=== PATIENT | male | born 1985 | race American Indian/Alaskan Native ===

== ENCOUNTER 2021-01-24 10:49 | Emergency (ER) | payer SELFPAY ==
[2021-01-24 11:25] VITALS: BP 166/96
--- NOTE | 2021-01-24 13:09 | Emergency Department Report ---
ED Headache HPI - General Chief Complaint: Head Injury Stated Complaint: HEADACHE/PAIN(R)SIDE JAW PAIN Time Seen by Provider: 01/24/21 12:57 - History of Present Illness Initial Comments: 35-year-old -Welsh male with a past medical history of bipolar presents to the emergency room for headache to the right side of his head and right side upper jaw pain for 2 weeks. For the same amount of time patient has been having a crooked smile and eyebrow on the right side is not lifting. Patient reports that he is in need experimental drug trial for bipolar medication but cannot remember the name of the medicine. Quality: mild Head Injury Location: parietal (rt side with jaw pain) Recent Head Trauma: no recent headache/trauma Associated Symptoms: facial pain (right upper jaw pain.). denies: fever/chills, flushing, loss of consciousness, nausea/vomiting, nasal congestion, nasal drainage, numbness in legs/feet Allergies/Adverse Reactions: Allergies acetaminophen Adverse Reaction (Verified 01/24/21 11:23) Shortness of Breath Home Medications: Ambulatory Orders Ibuprofen [Motrin 800 MG tab] 800 mg PO Q8HR PRN #30 tablet 01/24/21 ED Review of Systems ROS: Stated complaint: HEADACHE/PAIN(R)SIDE JAW PAIN Other details as noted in HPI Comment: All other systems reviewed and negative ED Past Medical Hx - Medications Home Medications: Home Medications Medication Instructions Recorded Confirmed Last Taken Type Ibuprofen [Motrin 800 MG tab] 800 mg PO Q8HR PRN #30 tablet 01/24/21 Unknown Rx ED Physical Exam - General Limitations: No Limitations General appearance: alert, in no apparent distress - Head Head exam: Present: atraumatic, normocephalic - Eye Eye exam: Present: normal appearance - ENT ENT exam: Present: mucous membranes moist - Neck Neck exam: Present: normal inspection - Respiratory Respiratory exam: Present: normal lung sounds bilaterally. Absent: respiratory distress - Cardiovascular Cardiovascular Exam: Present: regular rate, normal rhythm. Absent: systolic murmur, diastolic murmur, rubs, gallop - GI/Abdominal GI/Abdominal exam: Present: soft, normal bowel sounds - Rectal Rectal exam: Present: deferred - Extremities Exam Extremities exam: Present: normal inspection - Back Exam Back exam: Present: normal inspection - Neurological Exam Neurological exam: Present: alert, oriented X3 - Expanded Neurological Exam Expanded Cranial nerves: EOM's Intact: Normal, Gag Reflex: Normal, Tongue Deviation: Normal, Nystagmus: Normal, Facial Sensation: Normal, Facial Palsy with Forehead Movement: Normal, Facial Palsy without Forehead Movement: Abnormal Right Cerebellar function: Finger to Nose: Normal, Heel to Gonzalez: Normal, Romberg: Normal Upper motor neuron: Vincent Neglect: Normal, Pronator Drift: Normal, Babinski Sign: Normal, Sensory Extinction: Normal Sensory exam: Upper Extremity Light Touch: Normal, Upper Extremity Pin Prick: N ormal, Upper Extremity Temperature: Normal, UE 2 Point Discrimination: Normal, Lower Extremity Light Touch: Normal, Lower Extremity Pin Prick: Normal, Lower Extremity Temperature: Normal, LE 2 Point Discrimination: Normal Motor strength exam: RUE: 4, LUE: 4, RLE: 4, LLE: 4 Best Eye Response ([place]): (4) open spontaneously Best Motor Response (Chaitanya): (6) obeys commands Best Verbal Response ([place]): (5) oriented [place] Total: 15 - Psychiatric Psychiatric exam: Present: normal affect, normal mood - Skin Skin exam: Present: warm, dry, intact, normal color. Absent: rash ED Course Vital Signs 01/24/21 11:24 Temperature 98.2 F Pulse Rate 83 Respiratory 18 Rate Blood Pressure 166/96 O2 Sat by Pulse 97 Oximetry ED Medical Decision Making - Radiology Data Radiology results: report reviewed [address] [address] Cat Scan Report Signed Patient: MARIA INES ROWAN MR #: [id number] : 1985 Acct:[id number] Age/Sex: 35 / M ADM Date: 01/24/21 Loc: ED Attending Dr: Ordering Physician: DAGMAR COULTER Date of Service: 01/24/21 Procedure(s): CT head/brain wo con Accession Number(s): [id number] cc: DAGMAR COULTER CT HEAD WITHOUT CONTRAST INDICATION / CLINICAL INFORMATION: Headache of unknown origin. TECHNIQUE: All CT scans at this location are performed using CT dose reduction for ALARA by means of automated exposure control. COMPARISON: None available. FINDINGS: HEMORRHAGE: None. EXTRA-AXIAL SPACES: Normal in size and morphology for the patient's age. VENTRICULAR SYSTEM: Normal in size and morphology for the patient's age. CEREBRAL PARENCHYMA: No significant abnormality. No acute territorial infarct. MIDLINE SHIFT / HERNIATION: None. CEREBELLUM / BRAINSTEM: No significant abnormality. ORBITS: Normal as visualized. SOFT TISSUES: No significant abnormality. SKULL: No significant abnormality. PARANASAL SINUSES / MASTOID AIR CELLS: Normal as visualized. ADDITIONAL FINDINGS: None. IMPRESSION: 1. No acute intracranial abnormality. Signer Name: Patrick Hoyt MD Signed: 01/24/2021 5:36 PM Workstation Name: [id number] Transcribed By: SB Dictated By: PATRICK HOYT MD Electronically Authenticated By: PATRICK HOYT MD Signed Date/Time: 01/24/211735 DD/ 34 TD/TT: - Medical Decision Making 35-year-old -Welsh male with a past medical history of bipolar presents to the emergency room for headache to the right side of his head and right side upper jaw pain for 2 weeks. For the same amount of time patient has been having a crooked smile and eyebrow on the right side is not lifting. Patient reports that he is in need experimental drug trial for bipolar medication but cannot remember the name of the medicine. Discussed case with Dr. Alex she is okay with a CT head. Critical care attestation.: If time is entered above; I have spent that time in minutes in the direct care of this critically ill patient, excluding procedure time. ED Disposition Clinical Impression: Jaw pain Headache Qualifiers: Headache type: unspecified Headache chronicity pattern: acute headache Intractability: intractable Qualified Code(s): R51.9 - Headache, unspecified Disposition: 01 HOME / SELF CARE / HOMELESS Is pt being admited?: No Does the pt Need Aspirin: No Condition: Stable Additional Instructions: CT scan is negative for any acute abnormalities of your brain. I recommend ibuprofen as I prescribed. Inform your doctor that she been having these headaches from the medication. Increase your fluids advance your diet as tolerated. Prescriptions: Ibuprofen [Motrin 800 MG tab] 800 mg PO Q8HR PRN #30 tablet PRN Reason: Pain , Severe (7-10) Referrals: PRIMARY CAREMD [Primary Care Provider] - 3-5 Days [facility] [Provider Group] - 3-5 Days Forms: Work/School Release Form(ED) Time of Disposition: 17:56
--- NOTE | 2021-01-24 17:40 | Cat Scan Report ---
CT HEAD WITHOUT CONTRAST INDICATION / CLINICAL INFORMATION: Headache of unknown origin. TECHNIQUE: All CT scans at this location are performed using CT dose reduction for ALARA by means of automated exposure control. COMPARISON: None available. FINDINGS: HEMORRHAGE: None. EXTRA-AXIAL SPACES: Normal in size and morphology for the patient's age. VENTRICULAR SYSTEM: Normal in size and morphology for the patient's age. CEREBRAL PARENCHYMA: No significant abnormality. No acute territorial infarct. MIDLINE SHIFT / HERNIATION: None. CEREBELLUM / BRAINSTEM: No significant abnormality. ORBITS: Normal as visualized. SOFT TISSUES: No significant abnormality. SKULL: No significant abnormality. PARANASAL SINUSES / MASTOID AIR CELLS: Normal as visualized. ADDITIONAL FINDINGS: None. IMPRESSION: 1. No acute intracranial abnormality. Signer Name: Patrick Hoyt MD Signed: 01/24/2021 5:36 PM Workstation Name: [id number]
== END 2021-01-24 18:04 | disposition home or self-care (01) ==
LOC: ED 10:49
DX: R51.9 Headache, unspecified (principal); R68.84 Jaw pain; Z79.899 Other long term (current) drug therapy; Z88.8 Allergy status to other drugs, medicaments and biological substances
CPT/HCPCS: 70450

== ENCOUNTER 2021-02-21 07:46 | Emergency (ER) | payer SELFPAY ==
[2021-02-21] MEDS ORDERED: IBUPROFEN 600 MG TAB PO ONE (09:38)
--- NOTE | 2021-02-21 10:47 | Emergency Department Report ---
<CALE MONTELONGO - Last Filed: 02/21/21 14:39> ED ENT HPI - General Chief complaint: Sore Throat Stated complaint: SORE THROAT AND RT EAR ACHE Time Seen by Provider: 02/21/21 10:28 - Related Data Previous Rx's Medication Instructions Recorded Last Taken Type Ibuprofen [Motrin 800 MG tab] 800 mg PO Q8HR PRN #30 tablet 01/24/21 Unknown Rx Amoxicillin/Potassium Clav 600 mg PO Q12H 10 Days #100 ml 02/21/21 Unknown Rx [Augmentin Es-600 Suspension] Ibuprofen [Motrin 800 MG tab] 800 mg PO Q8HR PRN #30 tablet 02/21/21 Unknown Rx Prednisone [predniSONE 10 mg 10 mg PO .TAPER #1 tab.ds.pk 02/21/21 Unknown Rx (6-Day Pack, 21 Tabs)] traMADoL [Ultram 50 MG tab] 50 mg PO Q4HR PRN #15 tablet 02/21/21 Unknown Rx Allergies Allergy/AdvReac Type Severity Reaction Status Date / Time acetaminophen AdvReac Shortness Verified 01/24/21 11:23 of Breath ED Dental HPI - General Chief complaint: Sore Throat Stated complaint: SORE THROAT AND RT EAR ACHE Time Seen by Provider: 02/21/21 10:28 - Related Data Previous Rx's Medication Instructions Recorded Last Taken Type Ibuprofen [Motrin 800 MG tab] 800 mg PO Q8HR PRN #30 tablet 01/24/21 Unknown Rx Amoxicillin/Potassium Clav 600 mg PO Q12H 10 Days #100 ml 02/21/21 Unknown Rx [Augmentin Es-600 Suspension] Ibuprofen [Motrin 800 MG tab] 800 mg PO Q8HR PRN #30 tablet 02/21/21 Unknown Rx Prednisone [predniSONE 10 mg 10 mg PO .TAPER #1 tab.ds.pk 02/21/21 Unknown Rx (6-Day Pack, 21 Tabs)] traMADoL [Ultram 50 MG tab] 50 mg PO Q4HR PRN #15 tablet 02/21/21 Unknown Rx Allergies Allergy/AdvReac Type Severity Reaction Status Date / Time acetaminophen AdvReac Shortness Verified 01/24/21 11:23 of Breath ED Past Medical Hx - Medications Home Medications: Home Medications Medication Instructions Recorded Confirmed Last Taken Type Ibuprofen [Motrin 800 MG tab] 800 mg PO Q8HR PRN #30 tablet 01/24/21 Unknown Rx Amoxicillin/Potassium Clav 600 mg PO Q12H 10 Days #100 ml 02/21/21 Unknown Rx [Augmentin Es-600 Suspension] Ibuprofen [Motrin 800 MG tab] 800 mg PO Q8HR PRN #30 tablet 02/21/21 Unknown Rx Prednisone [predniSONE 10 mg 10 mg PO .TAPER #1 tab.ds.pk 02/21/21 Unknown Rx (6-Day Pack, 21 Tabs)] traMADoL [Ultram 50 MG tab] 50 mg PO Q4HR PRN #15 tablet 02/21/21 Unknown Rx ED Course - Reevaluation(s) Reevaluation #1: 02/21/21 14:29 Patient examined by myself. Patient is speaking without hoarseness, able to swallow secretions, able to tolerate a Motrin 400 mg pill p.o. without difficulty. Complaints of right sided throat pain greater than the left. Tender right sided lymphadenopathy. Swollen bilateral tonsils without obvious exudate. Uvula midline. CT reviewed. No signs of abscess. Airway patent. case discussed with midlevel Natalia deshpande. Patient safe for discharge with p.o. Augmentin or clindamycin, tramadol, Motrin, and prednisone. Patient informed to return if symptoms worsen i.e. difficulty swallowing secretions, shortness of breath, increased throat tightness, unable to tolerate p.o. 02/21/21 14:39 ED Medical Decision Making - Lab Data Result diagrams: 02/21/21 10:30 02/21/21 10:30 ED Disposition Clinical Impression: SIRS (systemic inflammatory response syndrome), Pharyngitis Disposition: 01 HOME / SELF CARE / HOMELESS Condition: Stable Instructions: Pharyngitis, [id number] Additional Instructions: Please complete antibiotics as prescribed. Please complete the prednisone/steroid as prescribed. You can take the ibuprofen every 6-8 hours and tramadol every 4-6 hours as needed. Do not operate heavy machinery while taking tramadol. Is very important for you to increase your fluid intake advance your diet as tolerated. I recommend to follow-up with a primary care provider or ear nose and throat provider. I have last their information below. Please return back to the emergency room if you have any worsening symptoms difficulty breathing chest pain. Understand that ibuprofen will also work to bring your fever down. Prescriptions: Amoxicillin/Potassium Clav [Augmentin Es-600 Suspension] 600 mg PO Q12H 10 Days #100 ml Ibuprofen [Motrin 800 MG tab] 800 mg PO Q8HR PRN #30 tablet PRN Reason: Pain , Severe (7-10) Prednisone [predniSONE 10 mg (6-Day Pack, 21 Tabs)] 10 mg PO .TAPER #1 tab.ds.pk traMADoL [Ultram 50 MG tab] 50 mg PO Q4HR PRN #15 tablet PRN Reason: Pain Referrals: PRIMARY CARE, [Primary Care Provider] - 3-5 Days MARCELLO DOMINGUEZ MD [Referring] - 3-5 Days HILARIO THOMAS MD [Staff Physician] - 3-5 Days Forms: Work/School Release Form(ED) <YOSVANY FINLEY - Last Filed: 02/21/21 14:53> ED ENT HPI - General Source: patient Mode of arrival: Ambulatory Limitations: No Limitations - History of Present Illness Initial comments: The patient was evaluated in the emergency department for symptoms described in the history of present illness. He/she was evaluated in the context of the global COVID-19 pandemic, which necessitated consideration that the patient might be at risk for infection with the virus that causes COVID-19. Institutional protocols and algorithms that pertain to the evaluation of patients at risk for COVID-19 are in a state of rapid change based on information released by regulatory bodies including the CDC and federal and state organizations. These policies and algorithms were followed during the patient's care in the emergency department. Please note that these policies, procedures and recommendations changed on a rapid basis. 35-year-old -[place] male presents to the emergency room complaining of sore throat and right ear pain since Monday. Patient states he has had a fever since Monday. Patient reports is difficult for him to swallow. Patient reports he has taken ibuprofen. States he has no past medical history currently takes no meds on a daily basis and has an allergy to Tylenol. Patient reports increased secretions. complaint: sore throat, difficulty swallowing Onset/Timin -: days(s) Location: R ear, throat Severity scale (0 -10): 9 Quality: stabbing, aching, sharp Consistency: constant Improves with: none Worsens with: swallowing Associated Symptoms: fever, pain with swallowing, sore throat, discharge from ear ED Dental HPI - General Source: patient Mode of arrival: Ambulatory Limitations: No Limitations ED Review of Systems ROS: Stated complaint: SORE THROAT AND RT EAR ACHE Other details as noted in HPI Constitutional: chills, fever ENT: ear pain, throat pain Respiratory: denies: cough, shortness of breath, wheezing Cardiovascular: denies: chest pain, palpitations Endocrine: no symptoms reported Gastrointestinal: denies: abdominal pain, nausea, diarrhea Genitourinary: denies: urgency, dysuria ED Past Medical Hx - Past Medical History Hx Hypertension: Yes ED Physical Exam - General Limitations: No Limitations General appearance: alert, in no apparent distress - Head Head exam: Present: atraumatic, normocephalic - Eye Eye exam: Present: normal appearance - ENT ENT exam: Present: mucous membranes moist - Expanded ENT Exam Expanded Mouth exam: Present: trismus, muffled voice, other (Increased mucus in the back of the throat) Throat exam: Positive: tonsillar erythema, tonsillomegaly, R peritonsillar mass. Negative: tonsillar exudate - Neck Neck exam: Present: tenderness (Right side), full ROM - Respiratory Respiratory exam: Present: normal lung sounds bilaterally. Absent: chest wall tenderness, accessory muscle use - Cardiovascular Cardiovascular Exam: Present: tachycardia - Extremities Exam Extremities exam: Present: normal inspection - Back Exam Back exam: Present: normal inspection - Neurological Exam Neurological exam: Present: alert, oriented X3 - Psychiatric Psychiatric exam: Present: normal affect, normal mood - Skin Skin exam: Present: warm, dry, intact, normal color. Absent: rash ED Course Vital Signs 02/21/21 02/21/21 08:25 13:17 Temperature 102.8 F H 98.1 F Pulse Rate 121 H 95 H Respiratory 18 18 Rate Blood Pressure 134/85 Blood Pressure 137/91 [Left] O2 Sat by Pulse 97 99 Oximetry ED Medical Decision Making - Lab Data Result diagrams: 02/21/21 10:30 02/21/21 10:30 Laboratory Tests 02/21/21 02/21/21 02/21/21 10:30 10:30 Unknown WBC 24.3 H RBC 4.74 Hgb 14.8 Hct 43.6 MCV 92 MCH 31 MCHC 34 RDW 14.2 Plt Count 275 Sodium 137 Potassium 4.0 Chloride 102.0 Carbon Dioxide 27 Anion Gap 12 BUN 6 L Creatinine 1.0 Estimated GFR > 60 BUN/Creatinine Ratio 6 Glucose 115 H Calcium 9.7 Total Bilirubin 0.50 AST 17 ALT 28 Alkaline Phosphatase 99 Total Protein 8.1 Albumin 4.2 Albumin/Globulin Ratio 1.1 Group A Strep Rapid Negative - Radiology Data Radiology results: report reviewed [facility] [address] [place] [address] Cat Scan Report Signed Patient: MARIA INES ROWAN MR #: [id number] : 1985 Acct:[id number] Age/Sex: 35 / M ADM Date: 02/21/21 Loc: ED Attending Dr: Ordering Physician: DAGMAR COULTER Date of Service: 02/21/21 Procedure(s): CT neck w con Accession Number(s): [id number] cc: DAGMAR COULTER CT neck w con INDICATION / CLINICAL INFORMATION: 35 years Male; Throat swelling on the right side OMNI 300 100 ML. TECHNIQUE: Contiguous thin cut axial images obtained through the neck following IV co ntrast. Sagittal and coronal reconstructions performed by the technologist. All CT scans at this [facility] are performed using CT dose reduction for ALARA by means of automated exposure control. COMPARISON: None available. FINDINGS: Tonsillar swelling seen bilaterally-right greater than left. There is also evidence of mucosal/submucosal edema extending inferiorly along the hypopharyngeal wall into the supraglottic laryngeal region. There is asymmetric thickening of the aryepiglottic fold on the right with decreased visualization of the right piriform sinus, when compared with the left. No definitive abscess appreciated. MUCOSAL SPACE: Otherwise, the nasopharynx, oropharynx and vallecula, oral cavity and floor of mouth, hypopharynx, and larynx are grossly normal. LYMPH NODES: Prominent, presumably reactive level 2 lymph nodes noted bilaterally. No evidence of suppurative lymph node. SALIVARY GLANDS: Parotid, submandibular, and visualized sublingual glands are within normal limits. THYROID GLAND: Unremarkable. PARANASAL SINUSES: Visualized paranasal sinuses and mastoid air cells are essentially clear. SPINE: No significant abnormality of the cervical spine appreciated. VASCULAR STRUCTURES: Vascular structures are grossly normal in appearance. ADDITIONAL FINDINGS: Surrounding soft tissues are otherwise grossly normal. IMPRESSION: 1. Mucosal and submucosal swelling in the kirt and hypopharynx as described above. No definitive signs of abscess. Reactive nonsuppurative lymph nodes identified. Signer Name: Wilbur Jovel MD, III Signed: 02/21/2021 12:58 PM Workstation Name: [id number] Transcribed By: HR Dictated By: Wilbur Jovel MD Electronically Authenticated By: Wilbur Jovel MD Signed Date/Time: 02/21/21 1258 DD/ 1254 TD/TT: Print Cancel - Medical Decision Making 35-year-old -[place] male presents to the emergency room complaining of sore throat and right ear pain since Monday. Patient states he has had a fever since Monday. Patient reports is difficult for him to swallow. Patient reports he has taken ibuprofen. States he has no past medical history currently takes no meds on a daily basis and has an allergy to Tylenol. Patient reports increased secretions. CBC, CMP, rapid strep, INT, CT of neck soft tissue with contrast and ibuprofen for pain management. Patient was given morphine 4 mg IV for pain. CT came back with no concerns for peritonsillar abscess but does show that patient has some Critical care attestation.: If time is entered above; I have spent that time in minutes in the direct care of this critically ill patient, excluding procedure time. ED Disposition Is pt being admited?: No Does the pt Need Aspirin: No
[2021-02-21 11:30] LABS: Hematocrit 43.6 % (35.5-45.6); Hemoglobin 14.8 gm/dl (11.8-15.2); Mean Corpuscular HGB Conc 34 % (32-34); Mean Corpuscular Volume 92 fl (84-94); Platelet Count 275 K/mm3 (140-440); Red Blood Count 4.74 M/mm3 (3.65-5.03); Red Cell Distribution Width 14.2 % (13.2-15.2)
[2021-02-21] MEDS ORDERED: CLINDAMYCIN 600 MG/50 mL 600 MG/50 ML BAG IV ONE (11:43)
[2021-02-21] MEDS ORDERED: SODIUM CHLORIDE 0.9% 1000 ML 1,000 ML IV ONE (11:43)
[2021-02-21] MEDS ORDERED: dexAMETHasone 20 MG/5 ML VIAL IV ONE (11:43)
[2021-02-21] MEDS ORDERED: MORPHINE 4 MG/1 ML INJ IV ONE ×2 (11:45→14:25)
[2021-02-21 11:51] LABS: Alanine Aminotransferase 28 units/L (7-56); Albumin 4.2 g/dL (3.9-5); BUN/Creatinine Ratio 6; Blood Urea Nitrogen 6 mg/dL (9-20); Calcium 9.7 mg/dL (8.4-10.2); Hemolysis Index 42
--- NOTE | 2021-02-21 13:03 | Cat Scan Report ---
CT neck w con INDICATION / CLINICAL INFORMATION: 35 years Male; Throat swelling on the right side OMNI 300 100 ML. TECHNIQUE: Contiguous thin cut axial images obtained through the neck following IV contrast. Sagittal and cohn l reconstructions performed by the technologist. All CT scans at this location are performed using CT dose reduction for ALARA by means of automated exposure control. COMPARISON: None available. FINDINGS: Tonsillar swelling seen bilaterally-right greater than left. There is also evidence of muco flip/submucosal edema extending inferiorly along the hypopharyngeal wall into the supraglottic larynge al region. There is asymmetric thickening of the aryepiglottic fold on the right with decreased visua lization of the right piriform sinus, when compared with the left. No definitive abscess appreciated. MUCOSAL SPACE: Otherwise, the nasopharynx, oropharynx and vallecula, oral cavity and floor of mouth, hypopharynx, and larynx are grossly normal. LYMPH NODES: Prominent, presumably reactive level 2 lymph nodes noted bilaterally. No evidence of sup purative lymph node. SALIVARY GLANDS: Parotid, submandibular, and visualized sublingual glands are within normal limits. THYROID GLAND: Unremarkable. PARANASAL SINUSES: Visualized paranasal sinuses and mastoid air cells are essentially clear. SPINE: No significant abnormality of the cervical spine appreciated. VASCULAR STRUCTURES: Vascular structures are grossly normal in appearance. ADDITIONAL FINDINGS: Surrounding soft tissues are otherwise grossly normal. IMPRESSION: 1. Mucosal and submucosal swelling in the kirt and hypopharynx as described above. No definitive signs of abscess. Reactive nonsuppurative lymph nodes identified. Signer Name: Wilbur Jovel MD, III Signed: 02/21/2021 12:58 PM Workstation Name: [id number]
[2021-02-21 13:18] VITALS: BP 134/85
[2021-02-21 17:23] LABS: Band Neutrophils # (Manual) 1.9 K/mm3; Platelet Estimate Consistent w Auto; Promyelocytes # (Manual) 80.6 K/mm3; Total Cells Counted 100
== END 2021-02-21 15:11 | disposition home or self-care (01) ==
LOC: ED 07:46
DX: J02.9 Acute pharyngitis, unspecified (principal); R65.10 Systemic inflammatory response syndrome (SIRS) of non-infectious origin without acute organ dysfunction; Z88.6 Allergy status to analgesic agent; Z79.899 Other long term (current) drug therapy
CPT/HCPCS: 36415; 70491; 80053; 85007; 85025; 87116; 87430; 96365; 96375; 99284; J1100; J2270; J7030; Q9967